=== PATIENT | female | born 1985 | race Caucasian/White ===

== ENCOUNTER 2021-07-03 20:04 | Emergency (ER) | payer MEDICAID, OTHER ==
[~2021-07-03] VITALS: Ht 162.6 cm; Wt 95.3 kg
--- NOTE | 2021-07-03 20:15 | NUR ---
TO [facility]
--- NOTE | 2021-07-03 20:20 | NUR ---
SEEN AND EXAMINED BY LILLY
[2021-07-03 20:30] VITALS: BP 151/82
--- NOTE | 2021-07-03 20:40 | NUR ---
SWABS FOR NOVEL, INFLUENZA SENT TO LAB
[2021-07-03 23:00] VITALS: BP 132/80
--- NOTE | 2021-07-03 23:19 | NUR ---
HEART TONE DONE , 148 ERMD NOTE
--- NOTE | 2021-07-03 23:30 | NUR ---
Patient discharged with v/s stable. Written and verbal after care instructions given and explained. Patient verbalized understanding. Ambulatory with steady gait. All questions addressed prior to discharge. Advised to follow up with PMD.
== END 2021-07-03 23:30 | disposition home or self-care (01) ==
LOC: MED 20:04
DX: O99.511 Diseases of the respiratory system complicating pregnancy, first trimester (principal); Z20.822 Contact with and (suspected) exposure to COVID-19; Z3A.10 10 weeks gestation of pregnancy
CPT/HCPCS: 87804; 99283; U0003